=== PATIENT | female | born 1985 | race Caucasian/White ===

== ENCOUNTER 2018-05-14 17:47 | Outpatient (REF) | payer BC, SELFPAY ==
--- NOTE | 2018-05-14 15:30 | PAPFT_PTH ---
PATIENT: Grace Patricio LOC: [facility] U#:[id number] AGE/SX: 32/F ROOM: RE05/14/[address]: Agatha Sexton : 1985 BED: DIS: 05/14/2018 SPEC #: [id number] RECD: 05/15/18 13:16 STATUS: ASHLEY REShelby #: [id number] AD: 05/14/18 15:[address]: Agatha Sexton DEPT: [facility] Cytology RECD BY: Devora Damon Tissues: 1 - CX/ENDOCX FOR PAP SMEARS Procedures: PAP THIN PREP/[facility] Screening HPV DNA PROBE Comments: [id number]
== END 2018-05-14 18:07 ==
LOC: NCHCN 17:47
PROVIDERS: PCP Registered Nurse; Visit Provider Registered Nurse
DX: Z00.00 Encounter for general adult medical examination without abnormal findings (principal); Z12.4 Encounter for screening for malignant neoplasm of cervix; Z11.51 Encounter for screening for human papillomavirus (HPV)
CPT/HCPCS: 88142; 87624

== ENCOUNTER 2020-03-15 14:21 | Outpatient (REF) | payer BC, SELFPAY ==
[2020-03-18 21:27] LABS: COVID-19 RT-PCR Result NEGATIVE (Negative)
== END 2020-03-15 14:41 ==
LOC: NCHCN 14:21
PROVIDERS: PCP Registered Nurse; Visit Provider Registered Nurse
DX: J06.9 Acute upper respiratory infection, unspecified (principal)
CPT/HCPCS: U0003

== ENCOUNTER 2021-02-09 17:39 | Outpatient (REF) | payer BC, SELFPAY ==
[2021-02-09 21:35] LABS: HCT 38.3 % (36.0-46.0); HGB 12.1 g/dL (11.2-15.7); MCH 27.4 pg (27.0-33.0); MCHC 31.6 % (32.0-36.0); MCV 86.8 fL (80-95); MPV 10.2 fL (8.0-11.0); Platelet Count 343 10^3/uL (130-400); RBC 4.41 10^6/uL (3.93-5.22); RDW 14.1 % (11.7-14.6); RDW-SD 45.1 fL; WBC 9.53 10^3/uL (4.4-10.8)
[2021-02-10 08:05] LABS: TSH 1.39 uIU/mL (0.36-3.74)
== END 2021-02-09 17:40 | disposition home or self-care (01) ==
LOC: NCHCN 17:39
PROVIDERS: PCP Registered Nurse; Visit Provider Registered Nurse
DX: R03.0 Elevated blood-pressure reading, without diagnosis of hypertension (principal); N93.9 Abnormal uterine and vaginal bleeding, unspecified
CPT/HCPCS: 85027; 84443

== ENCOUNTER 2021-04-08 09:47 | Outpatient (REF) | payer BC, SELFPAY ==
[2021-04-08 14:35] LABS: Calculated LDL 84 mg/dL (<100); Cholesterol 150 mg/dL (<200); HDL Cholesterol 53 mg/dL (40-60); Triglyceride 66 mg/dL (<150)
[2021-04-08 14:37] LABS: Hemoglobin A1C 5.5 % (<5.7)
== END 2021-04-08 09:48 | disposition home or self-care (01) ==
LOC: NCHCN 09:47
PROVIDERS: PCP Registered Nurse; Visit Provider Registered Nurse
DX: Z00.00 Encounter for general adult medical examination without abnormal findings (principal); R03.0 Elevated blood-pressure reading, without diagnosis of hypertension
CPT/HCPCS: 80061; 83036

== ENCOUNTER 2023-03-19 15:56 | Outpatient (REF) | payer BC, SELFPAY ==
[2023-03-19 22:23] LABS: BUN 13 mg/dL (7-18); CREATININE 1.4 mg/dL (0.55-1.02); Calcium 9.3 mg/dL (8.5-10.1); Chloride 103 mmol/L (98-107); Glucose 99 mg/dL (74-106); Potassium 4.1 mmol/L (3.5-5.1); Sodium 138 mmol/L (136-145)
== END 2023-03-19 15:57 | disposition home or self-care (01) ==
LOC: NCHCN 15:56
PROVIDERS: PCP Registered Nurse; Visit Provider Registered Nurse
DX: U07.1 COVID-19 (principal)
CPT/HCPCS: 80048

== ENCOUNTER 2023-05-18 15:26 | Outpatient (REF) | payer BC, SELFPAY ==
--- NOTE | 2023-05-18 14:30 | PAPFT_PTH ---
PATIENT: Grace Patricio [facility] U#:[id number] AGE/SX: 37/F ROOM: RE05/18/[address]: DIANA: 1985 BED: DIS: 05/18/2023 SPEC #: [id number] RECD: 05/21/23 13:05 STATUS: ASHLEY DURHAM #: [id number] AD: 05/18/23 14:[address]: Steff Garcia DEPT: [facility] Cytology RECD BY: Devora Damon ENTERED: 05/21/23 13:06 SP TYPE: PAPFT OTHR DR: Agatha Sexton Tissues: 1 - CX/ENDOCX FOR PAP SMEARS Procedures: PAP THIN PREP/[facility] Screening HPV DNA PROBE Comments: [id number] (CHLAMYDIA/GC)
--- OUTSIDE RECORDS SUMMARY | 2023-05-18 15:28 | XMS_ITS | CCD ---
Author Name Unknown Address [address] [place] [address] [id number] Organization Unknown Address [address] [place] [address] [id number] Care Team Providers Care Tightener Name Role Phone SARITA HOLGUIN Attending Physician [phone] Vital Signs Unknown or Not Available. Allergies Unknown or Not Available. Procedures Unknown or Not Available. History of Immunizations Unknown or Not Available. Problems Unknown or Not Available. Results [facility] DE [facility]* - Jt ect Date/Time: 05/31/2021 10:05 Test Name Code Test Result Test Units Test Ref Rang e Tier- 03431-4 PRE-OP N/A SARS COV2 RNA: 65292-9 NEGATIVE N/A REFERENCE RANGE: NEGAT Active Medications Unknown or Not Available. Medications Administered During Visit Unknown or Not Available. Encounters Encounter Diagnosis Diagnosis Code Start Date Pre-surgery testing [id number] 05/31/2021 Social History Smoking Status Code Start Date End Date Never smoker [id number] Patient Decision Aids Unknown or Not Available. Discharge Instructions You were admitted to [facility] on 05/31/2021 08:56 with a principal diagnosis of Encounter for preprocedural laboratory examination You had the following tests done:RIVAS DE LEÓNONIX* You were discharged from [facility] on 05/31/2021 08:56 Should you have any questions prior to discharge, please contact a member of your healthcare team. If you have left the hospital and have any questions, please contact your primary care physician. Chief Complaint and Reason For Visit Unknown or Not Available. Function Status Unknown or Not Available. Plan of Care Unknown or Not Available. Referral/Transition of Care Unknown or Not Available.
--- OUTSIDE RECORDS SUMMARY | 2023-05-18 15:28 | XMS_ITS | CCD ---
Author Name Unknown Address [address] [place] [address] [id number] Organization Unknown Address [address] [place] [address] [phone] Care Team Providers Care Customer Operations Intern Name Role Phone MERLYN CONTRERAS Attending Physician [phone] Vital Signs Unknown or Not Available. Allergies Unknown or Not Available. Procedures Unknown or Not Available. History of Immunizations Unknown or Not Available. Problems Unknown or Not Available. Results Unknown or Not Available. Active Medications Unknown or Not Available. Medications Administered During Visit Unknown or Not Available. Encounters Encounter Diagnosis Diagnosis Code Start Date Abnormal vaginal bleeding [id number] 2020 Social History Smoking Status Code Start Date End Date Never smoker [id number] Patient Decision Aids Unknown or Not Available. Discharge Instructions You were admitted to [facility] on 03/11/2021 15:19 with a principal diagnosis of Abnormal uterine and vaginal bleeding, unspecified You were discharged from [facility] on 03/11/2021 15:19 Should you have any questions prior to discharge, please contact a member of your healthcare team. If you have left the hospital and have any questions, please contact your primary care physician. Chief Complaint and Reason For Visit Chief Complaint Date of Onset ABN UTERINE BLEEDING Function Status Unknown or Not Available. Plan of Care Unknown or Not Available. Referral/Transition of Care Unknown or Not Available.
[2023-05-18 21:10] LABS: HGB 12.8 g/dL (11.2-15.7); MCH 27.2 pg (27.0-33.0); MCHC 32.8 % (32.0-36.0); MCV 83 fL (80-95); MPV 9.9 fL (8.0-11.0); Platelet Count 416 10^3/uL (130-400); RBC 4.71 10^6/uL (3.93-5.22); RDW 13.5 % (11.7-14.6); WBC 10.57 10^3/uL (4.4-10.8)
[2023-05-18 21:31] LABS: Calculated LDL 71 mg/dL (<100); Cholesterol 184 mg/dL (<200); HDL Cholesterol 60 mg/dL (40-60); TSH 1.99 uIU/mL (0.36-3.74); Triglyceride 269 mg/dL (<150)
[2023-05-22 14:12] LABS: Chlamydia Result Negative (Negative); GC Result Negative (Negative)
== END 2023-05-18 15:27 | disposition home or self-care (01) ==
LOC: NCHCN 15:26
PROVIDERS: PCP Registered Nurse; Visit Provider Family Medicine
DX: R53.83 Other fatigue (principal); Z82.49 Family history of ischemic heart disease and other diseases of the circulatory system; N92.0 Excessive and frequent menstruation with regular cycle
CPT/HCPCS: 80061; 85027; 87491; 87591; 88142; 84443; 87624